=== PATIENT | male | born 2000 | race Caucasian/White ===

== ENCOUNTER 2022-03-15 10:18 | Emergency (ER) | payer MEDICAID, SELFPAY ==
[2022-03-15 10:19] VITALS: BP 173/81; PULSE 101; RESP 16; TEMP 36.6; O2SAT 99; BMI 19.2
--- NOTE | 2022-03-15 11:00 | EX.ED.DYSGE1 ---
HPI History of Present Illness Chief Complaint: Ear Problem Informant: patient Narrative Narrative: Patient is a 21-year-old male that denies any past medical history presenting with 5 months of persistent right ear pain. Does get clicking in his jaw. Also is having intermittent tinnitus. Has been seen by a dentist, strainer tender and ENT. He had x-rays performed by the dentist and strainer tender who told him everything looked normal. ENT thought he had TMJ. Patient has appointment to see neurology on April [address] Walter. He is currently on ibuprofen and Flexeril. States the pain is aching but sometimes becomes sharp. Can last for minutes or hours. Denies any electrical or zinging sensation. Does not think he has any hearing changes. Denies any family history of anything. States he tried [id number] mouthguard and it only made his symptoms worse. Denies any significant change in his symptoms today but came in at the insistence of friend because the pain was bad. Notes he did have a seizure in December after this started. Patient also mentions he is interested in getting his COVID-vaccine today. No other complaints at this time. PFSH PFSH Home Medications baclofen 10 mg tablet 10 mg PO TID PRN pain #30 tabs 03/15/22 [Rx Last Taken Unknown] fluticasone propionate 50 mcg/actuation nasal spray,suspension (24 Hour Allergy Relief) 1 spray intranasal DAILY #16 grams 03/15/22 [Rx Last Taken Unknown] ibuprofen 600 mg tablet 600 mg PO Q6H PRN PRN Pain Score 1-10/10 #20 tabs 03/15/22 [Rx Last Taken Unknown] Allergy/AdvReac Type Severity Reaction Status Date / Time No Known Allergies Allergy Verified 03/15/22 10:19 Social History Smoking Status: Current every day smoker tobacco type: cigarettes ROS ROS ED Constitutional Constitutional ED: Denies chills or fever(s) Eyes Eyes: Denies blurry vision, change in vision or diplopia ENT ENT ED: Reports ear pain right and other Details: Intermittent nasal congestion, ringing in ears ; Denies rhinorrhea or sore throat Cardiovascular Cardiovascular: Denies chest pain or palpitations Respiratory/Chest Respiratory/Chest: Denies cough or dyspnea Gastrointestinal Gastrointestinal: Denies abdominal pain, nausea or vomiting Musculoskeletal Musculoskeletal: Reports neck pain; Denies arthralgias or myalgias Integumentary Denies Abrasions or rash Neurologic Neurologic: Reports headache(s); Denies paresthesias or weakness Psychiatric Psychiatric: Denies anxiety EXAM Physical Exam Const Vital Signs: 03/15/22 10:19 Temperature 97.9 F Temperature Source Temporal Pulse Rate 101 H Respiratory Rate 16 Blood Pressure 173/81 H Blood Pressure Mean 111 Pulse Ox 99 Oxygen Delivery Method Room Air Positive well nourished and well developed General Appearance ED: well developed and NAD HEENT Reports moist mucous membranes HEENT Narrative: Normal external ears. Mild erythema of the right ear canal with some injection of the right tympanic membrane. Bilateral tympanic membranes are slightly injected. No air-fluid levels visualized. No bulging or purulence appreciated. No mastoid erythema or tenderness appreciated. Patient has some asymmetry of the TMJ joint especially on the right side with opening and closing of his mouth. There is clicking appreciated on the right side. Negative for trauma Neck supple and no JVD Neck Narrative: No meningeal signs General: Negative for tenderness Resp normal respiratory effort and clear to auscultation bilaterally Cardio regular rate, regular rhythm and no murmurs GI normal to inspection, nondistended, normoactive bowel sounds and non-tender Extremity normal to inspection General Extremety ED: Negative for edema or tenderness General Extremity: Negative for edema Neuro oriented x3, CN's II-XII intact bilaterally and no sensory deficits noted Neuro Narrative: Normal [id number]. No ataxia appreciated Motor Exam: strength 5/5 throughout Skin no rashes or lesions noted and no wounds MDM MDM MDM Narrative Medical decision making narrative: Patient is evaluated for 5 months of continued and worsening right ear pain. The pain really appears to be TMJ related. Patient is seen to dentist as well as an ENT. The ENT thought this was TMJ. Patient is on Flexeril and Motrin and feels that her pain is worsening. He does have follow-up with neurology. Will be given referral for OMFS. Will be started on some Flonase in case he does have some eustachian tube dysfunction he does have retraction of his tympanic membranes. I do not see infection and I do not think antibiotics related. He has normal neurologic exam and CT from December reviewed which was normal. Patient be switched to baclofen to see if that helps more with his pain and given a prescription for Motrin 600 mg. Counseled on maximum dosing of ibuprofen. Patient discharged home in stable condition. Discharge Plan Triage Chief Complaint: Ear Problem ED Provider: Libia Maradiaga Dx/Rx/DC Orders Clinical Impression: Chronic pain in right ear, Right temporomandibular joint disorder, unspecified, COVID-19 vaccine administered Instructions: ED Earache Without Infection (Adult), ED TMJ Syndrome Prescriptions: New baclofen 10 mg tablet 10 mg PO TID PRN (Reason: pain) Qty: 30 0RF ibuprofen 600 mg tablet 600 mg PO Q6H PRN PRN (Reason: Pain Score 1-10/10) Qty: 20 0RF fluticasone propionate [24 Hour Allergy Relief] 50 mcg/actuation spray,suspension 1 spray intranasal DAILY Qty: 16 0RF Rx Instructions: administer into each nostril Primary Care Provider: Care Physician,No Primary Referrals: Tono Atkinson MD [Med Staff - Active Staff] - As Needed Jean Marquez DDS [Med Staff - Active Staff] - As soon as possible NOT,DEFINED [NON-STAFF] - Disposition Disposition: Home, Self Care
--- NOTE | 2022-03-15 11:11 | ED.RN ---
PT STATS HE DOES NOT WANT COVID VACCINE ANYMORE
[2022-03-15] MEDS: Baclofen 10 MG Tablet 5 MG PO (11:31)
[2022-03-15] MEDS: Ibuprofen 600 MG Tablet PO (11:31)
== END 2022-03-15 11:36 | disposition home or self-care (01) ==
LOC: ED 11:18
PROVIDERS: Emergency Provider Emergency Medicine; Visit Provider Emergency Medicine
DX: H92.01 Otalgia, right ear (principal); G89.29 Other chronic pain; M26.611 Adhesions and ankylosis of right temporomandibular joint; F17.210 Nicotine dependence, cigarettes, uncomplicated; Z23 Encounter for immunization
CPT/HCPCS: 91300; 99283

== ENCOUNTER → 2022-05-07 | Outpatient (CLI) | payer MEDICAID, SELFPAY | END | disposition home or self-care (01) | LOC: PSN 08:06 | PROVIDERS: Referring Provider Psychiatry & Neurology Neurology; Visit Provider Psychiatry & Neurology Neurology | DX: R55 Syncope and collapse (principal) | CPT/HCPCS: 93225; 93226 ==

== ENCOUNTER → 2022-05-22 | Outpatient (CLI) | payer MEDICAID, SELFPAY ==
--- NOTE | 2022-05-22 09:50 | TELEMED_ITS ---
[facility] has confirmed receipt of a request for visit. This document confirms receipt of the order initiating the consult. To find the results of the consultation, please view the patient's reports for the scanned Tele[facility] Consult.
== END | disposition home or self-care (01) ==
LOC: PSN 08:29
PROVIDERS: PCP Internal Medicine; Referring Provider Psychiatry & Neurology Neurology; Visit Provider Psychiatry & Neurology Neurology
DX: R40.20 Unspecified coma (principal)
CPT/HCPCS: 95819

== ENCOUNTER → 2022-05-27 | Outpatient (CLI) | payer MEDICAID, SELFPAY ==
--- NOTE | 2022-05-27 16:58 | MRI_ITS ---
STUDY: MRI BRAIN WITH AND WITHOUT CONTRAST REASON FOR EXAM: Male, 22 years old. vertigo and seizures -- Attention to auditory canals TECHNIQUE: Standardized multiplanar fat and water weighted pulse sequences were obtained. IV 12ml Clariscan was administered for the contrast portion of the examination. COMPARISON: None. FINDINGS: Normal size of the ventricles and extra-axial spaces for the patient''s age. Normal white matter tracts of the supratentorial brain. Normal bilateral basal ganglia. Normal thalami. There is no extra-axial fluid accumulation. Normal flow voids within the major intracranial circulation suggesting patency by spin echo criteria. Normal venous enhancement. There is no enhancing intra-axial or extra-axial abnormality. Normal sella turcica, pituitary gland, infundibular stalk, optic chiasm and hypothalamus. Normal tectal plate and pineal gland. Normal midbrain, alden and medulla. Normal cerebellum. Normal basal cisterns. Normal bilateral temporal bones. Normal bilateral internal auditory canals. No demonstrated orbital abnormality, within the constraints of a routine brain study. Normal visualized paranasal sinuses. Normal calvarium and skull base. Normal visualized soft tissue structures. Normal visualized upper cervical spine. MRI/Brain W/WO Contrast IMPRESSION: Normal unenhanced and enhanced MRI of the brain. Electronically Signed: Nate Gillespie MD at 18:24 EDT ,
== END | disposition home or self-care (01) ==
LOC: MRI 16:42
PROVIDERS: PCP Internal Medicine; Visit Provider Psychiatry & Neurology Neurology
DX: R42 Dizziness and giddiness (principal); R56.9 Unspecified convulsions
CPT/HCPCS: 70553; A9575